=== PATIENT | female | born 1990 | race Caucasian/White ===

== ENCOUNTER 2016-11-29 18:23 | Emergency (ER) | payer OTHER ==
[~2016-11-29] VITALS: Ht 152.4 cm; Wt 86.0 kg
[~2016-11-29 18:23] MED LIST: Feosol PO; Motrin PO; Percocet 5/325,Endoc PO
[2016-11-29 19:50] LABS: ADD MIUA? YES; BILIRUBIN NEGATIVE; BLOOD SMALL; COLOR YELLOW ((YELLOW)); GLUCOSE (STRIP) NEGATIVE; KETONES 80; LEUKOCYTES NEGATIVE; NITRITE NEGATIVE; PROTEIN (STRIP) NEGATIVE; SPECIFIC GRAVITY 1.011 (1.000-1.030); UROBILINOGEN 0.2 MG/DL (0.2-1.0)
[2016-11-29 19:52] LABS: BACTERIA RARE /HPF; EPITHELIAL CELLS RARE /HPF; MUCUS TRACE /LPF; RED BLOOD CELLS 0-5 /HPF (0-5); UCUL ADDED? NO; WHITE BLOOD CELLS 0-5 /HPF (0-5)
[2016-11-29] MEDS ORDERED: TYLENOL WITH C1 EACH PO (20:14)
[2016-11-29 20:44] VITALS: BP 129/66
== END 2016-11-29 20:48 | disposition home or self-care (01) ==
LOC: EME 18:23
DX: M54.5 Low back pain (principal); Z88.0 Allergy status to penicillin
CPT/HCPCS: 81003; 99281; 99284

== ENCOUNTER 2017-05-30 19:37 | Emergency (ER) | payer OTHER ==
[~2017-05-30] VITALS: Ht 152.4 cm; Wt 79.3 kg
[~2017-05-30 19:37] MED LIST changes: +TYLENOL WITH C1 EACH PO
[2017-05-30 19:40] VITALS: BP 128/77
== END 2017-05-30 21:39 | disposition left against medical advice (07) ==
LOC: EME 19:37
DX: K08.89 Other specified disorders of teeth and supporting structures (principal); Z53.21 Procedure and treatment not carried out due to patient leaving prior to being seen by health care provider